=== PATIENT | female | born 1945 | race Caucasian/White ===

== ENCOUNTER 2016-05-27 09:59 | Day surgery (SDC) | payer OTHER ==
[~2016-05-27] VITALS: Ht 152.4 cm; Wt 52.2 kg
[~2016-05-27 09:59] MED LIST: CIPRO500 MG PO; Coumadin Protocol PO; FLAGYL500 MG PO; Feosol PO; PREDNISONE20 MG PO; TYLENOL EXTRA500 MG PO; ULTRAM50 MG PO; VENTOLIN HFA18 GM IH; Vicodin,Norco 5/325 PO; WELLBUTRIN SR150 MG PO; Wellbutrin SR PO; Zestril,Prinivil PO; celeBREX PO
[2016-05-27 10:37] LABS: EOSINOPHIL (%) 3.6 % (0-5); EOSINOPHIL COUNT 0.3 K/uL (0-0.3); HEMATOCRIT 47.9 % (36.0-46.0); IMMATURE GRANULOCYTE (%) 0.1 % (0.0-0.7); IMMATURE GRANULOCYTE COUNT 0.1 K/uL; LYMPHOCYTE COUNT 1.7 K/uL (1.0-2.8); MCV 91.1 FL (83-99); MEAN PLAT.VOLUME 11.4 uM^3 (9.5-12.4); MONOCYTE (%) 7.9 % (3-12); MONOCYTE COUNT 0.6 K/uL (0-0.8); NEUTROPHIL (%) 63.9 % (45-76); NEUTROPHIL COUNT 4.6 K/uL (1.8-6.4); PLATELET COUNT 211 K/uL (156-360); RBC DIS.WIDTH-CV 14.1 % (11.8-14.6); RBC DIS.WIDTH-SD 46.5 % (39-53); RED BLOOD COUNT 5.26 M/uL (3.80-5.20); WHITE BLOOD COUNT 7.2 K/uL (4.1-10.2)
[2016-05-27 10:45] LABS: PROTHROMBIN TIME 9.8 (9.2-11.2)
[2016-05-27 10:47] LABS: CHLORIDE 103 mEq/L (99-109); SODIUM 141 mEq/L (136-147)
[2016-05-27 10:49] LABS: GLUCOSE 92 mg/dL (70-99)
[2016-05-27 10:50] LABS: ANION GAP 11 MEQ/L (2-14)
[2016-05-27 10:51] LABS: TOTAL BILIRUBIN 0.5 mg/dL (0.0-1.0)
[2016-05-27 10:52] LABS: ALKALINE PHOSPHATASE 112 IU/L (3-129)
[2016-05-27 10:53] LABS: GFR ESTIMATE (CALCULATED) > 59 mL/min/
[2016-05-27 10:54] LABS: UREA NITROGEN (BUN) 13 mg/dL (9-23)
[2016-05-27 11:02] VITALS: BP 146/65
[2016-05-27 12:08] LABS: METH RESISTANT S AUREUS PCR NEGATIVE (NEGATIVE)
[2016-05-27 12:11] LABS: PROBE CHECK PASS; SPECIMEN PROCESSING CONTROL PASS
[2016-05-27] MEDS ORDERED: COLACE100 MG PO (14:06)
[2016-05-27] MEDS ORDERED: NORCO 5/3251 TABLET PO (14:06)
[2016-05-27 16:30] VITALS: BP 155/65
[2016-05-27 17:34] VITALS: BP 134/65
== END 2016-05-27 17:34 | disposition home or self-care (01) ==
LOC: SDC 09:59
PROVIDERS: Thoracic Surgery (Cardiothoracic Vascular Surgery)
PROC: 0WBC4ZX Excision of Mediastinum, Percutaneous Endoscopic Approach, Diagnostic (ICD-10-PCS; principal; 2016-05-27)
DX: R59.0 Localized enlarged lymph nodes (principal); R91.8 Other nonspecific abnormal finding of lung field; F17.200 Nicotine dependence, unspecified, uncomplicated; J44.9 Chronic obstructive pulmonary disease, unspecified; Z96.641 Presence of right artificial hip joint
CPT/HCPCS: 80053; 85025; 85610; 86850; 86900; 86901; 87641; 88305; 93005; J0330; J0690; J1100; J1170; J2250; J2405; J3010

== ENCOUNTER 2016-06-05 09:30 | Inpatient (IN) | payer OTHER ==
[~2016-06-05] VITALS: Ht 160 cm; Wt 44.0 kg
[~2016-06-05 09:30] MED LIST changes: +COLACE100 MG PO; +NORCO 5/3251 TABLET PO
[2016-06-19 07:57] VITALS: BP 146/63
[2016-06-19 07:59] LABS: PROTHROMBIN TIME 10.2 (9.2-11.2)
[2016-06-19 08:55] LABS: METH RESISTANT S AUREUS PCR POSITIVE (NEGATIVE)
[2016-06-19 08:59] LABS: PROBE CHECK PASS
[2016-06-19 20:35] VITALS: BP 131/67
[2016-06-19 21:00] VITALS: BP 117/58
[2016-06-19 22:00] VITALS: BP 107/87
[2016-06-19 23:00] VITALS: BP 146/62
[2016-06-20] VITALS: BP 139/51
[2016-06-20 04:30] VITALS: BP 133/49
[2016-06-20 06:25] LABS: HEMATOCRIT 41.3 % (36.0-46.0); MCH 30.7 PG (29.0-34.0); MCHC 32.9 G/DL (30.0-36.0); MCV 93.2 FL (83-99); MEAN PLAT.VOLUME 11.8 uM^3 (9.5-12.4); PLATELET COUNT 186 K/uL (156-360); RBC DIS.WIDTH-SD 48.1 % (39-53); RED BLOOD COUNT 4.43 M/uL (3.80-5.20)
[2016-06-20 06:34] LABS: WHITE BLOOD COUNT 14.8 K/uL (4.1-10.2)
[2016-06-20 06:48] LABS: ANION GAP 10 MEQ/L (2-14); CHLORIDE 104 MEQ/L (99-109); POTASSIUM 4.7 MEQ/L (3.7-5.4); SAMPLE HEMOLYSIS CHECK 0; SAMPLE ICTERIC CHECK 0; SAMPLE LIPEMIA CHECK 0; SODIUM 139 MEQ/L (136-147)
[2016-06-20 06:54] LABS: GFR ESTIMATE (CALCULATED) > 59 mL/min/; GLUCOSE 131 mg/dL (70-99); UREA NITROGEN (BUN) 13 mg/dL (9-23)
[2016-06-20 08:00] VITALS: BP 138/46
[2016-06-20 12:00] VITALS: BP 146/48
[2016-06-20 16:00] VITALS: BP 119/45
[2016-06-20 20:00] VITALS: BP 108/35
[2016-06-21] VITALS: BP 115/46
[2016-06-21 04:00] VITALS: BP 117/46
[2016-06-21 06:13] LABS: HEMATOCRIT 38.1 % (36.0-46.0); MCH 30.6 PG (29.0-34.0); MCHC 33.1 G/DL (30.0-36.0); MCV 92.5 FL (83-99); MEAN PLAT.VOLUME 11.9 uM^3 (9.5-12.4); PLATELET COUNT 165 K/uL (156-360); RBC DIS.WIDTH-CV 13.7 % (11.8-14.6); RBC DIS.WIDTH-SD 46.2 % (39-53); RED BLOOD COUNT 4.12 M/uL (3.80-5.20); WHITE BLOOD COUNT 11.8 K/uL (4.1-10.2)
[2016-06-21 06:59] LABS: ANION GAP 9 MEQ/L (2-14); CHLORIDE 101 MEQ/L (99-109); GFR ESTIMATE (CALCULATED) > 59 mL/min/; GLUCOSE 106 mg/dL (70-99); POTASSIUM 4.4 MEQ/L (3.7-5.4); SAMPLE HEMOLYSIS CHECK 0; SAMPLE ICTERIC CHECK 0; SAMPLE LIPEMIA CHECK 0; SODIUM 136 MEQ/L (136-147); UREA NITROGEN (BUN) 11 mg/dL (9-23)
[2016-06-21 08:30] VITALS: BP 98/40
[2016-06-21 12:30] VITALS: BP 110/49
[2016-06-21 22:05] VITALS: BP 116/56
[2016-06-22 00:38] VITALS: BP 133/62
[2016-06-22 04:45] VITALS: BP 129/61
[2016-06-22 06:38] LABS: HEMATOCRIT 35.5 % (36.0-46.0); MCH 30.6 PG (29.0-34.0); MCHC 33.2 G/DL (30.0-36.0); PLATELET COUNT 179 K/uL (156-360); RBC DIS.WIDTH-CV 13.5 % (11.8-14.6); RBC DIS.WIDTH-SD 45.1 % (39-53); RED BLOOD COUNT 3.86 M/uL (3.80-5.20); WHITE BLOOD COUNT 8.6 K/uL (4.1-10.2)
[2016-06-22 07:03] LABS: ANION GAP 7 MEQ/L (2-14); CHLORIDE 98 MEQ/L (99-109); GFR ESTIMATE (CALCULATED) > 59 mL/min/; GLUCOSE 100 mg/dL (70-99); POTASSIUM 4.3 MEQ/L (3.7-5.4); SAMPLE HEMOLYSIS CHECK 0; SAMPLE ICTERIC CHECK 0; SAMPLE LIPEMIA CHECK 0; SODIUM 136 MEQ/L (136-147); UREA NITROGEN (BUN) 13 mg/dL (9-23)
[2016-06-22 10:35] VITALS: BP 112/67
[2016-06-22 12:41] VITALS: BP 113/53
[2016-06-22 19:43] VITALS: BP 130/60
[2016-06-22 23:29] VITALS: BP 112/51
[2016-06-23 03:46] VITALS: BP 139/65
[2016-06-23 08:54] VITALS: BP 98/54
[2016-06-23 11:35] VITALS: BP 118/57
[2016-06-23 16:00] VITALS: BP 110/58
[2016-06-23] MEDS ORDERED: DOCUSATE SODIU100 MG PO (16:05)
[2016-06-23] MEDS ORDERED: LOPRESSOR25 MG PO (16:05)
[2016-06-23] MEDS ORDERED: ENDOCET 5-3251 EACH PO (16:05)
[2016-06-23] MEDS ORDERED: DIGOXIN125 MCG PO (16:05)
[2016-06-23 19:09] VITALS: BP 124/59
== END 2016-06-23 20:19 | disposition home or self-care (01) | DRG 165 ==
LOC: 2SOUTH 09:30 → 4WEST 06-19 06:58 → 2SOUTH 06-19 06:58 → 4EAST 06-19 06:58 → 2SOUTH 06-19 07:00 → 4WEST 06-19 20:31 → 4EAST 06-21 21:47
PROVIDERS: Thoracic Surgery (Cardiothoracic Vascular Surgery)
DX: C34.12 Malignant neoplasm of upper lobe, left bronchus or lung (principal); F17.210 Nicotine dependence, cigarettes, uncomplicated; J43.9 Emphysema, unspecified; M12.9 Arthropathy, unspecified; Z96.641 Presence of right artificial hip joint; F10.10 Alcohol abuse, uncomplicated; M47.812 Spondylosis without myelopathy or radiculopathy, cervical region; M47.816 Spondylosis without myelopathy or radiculopathy, lumbar region; Z99.81 Dependence on supplemental oxygen; Z87.11 Personal history of peptic ulcer disease; Z88.6 Allergy status to analgesic agent; Z82.49 Family history of ischemic heart disease and other diseases of the circulatory system; Z81.1 Family history of alcohol abuse and dependence; Z83.79 Family history of other diseases of the digestive system
CPT/HCPCS: 71010; 71020; 77012; 80048; 85027; 85610; 86850; 86900; 86901; 86920; 87641; 88305; 88309; 88331; 88341 TC; 88342 TC; 94010; 94640; 94640 76; 94799; 97530 GP; 99202; J0690; J1100; J1160; J1170; J1644; J2250; J2405; J2710; J2795; J3010; J7050; J7120